=== PATIENT | female | born 1955 | race Caucasian/White ===

== ENCOUNTER 2020-01-18 19:37 | Inpatient (IN) | payer MEDICAID ==
[~2020-01-18] VITALS: Ht 175.3 cm; Wt 103.4 kg
[2020-01-18] MEDS ORDERED: methylPREDNISolone SOD SUCC 125 MG/2 ML ONE (20:13)
[2020-01-18] MEDS ORDERED: ALBUTEROL/IPRATROPIUM 2.5MG/0.5MG, 3 ML ONE (20:13)
--- NOTE | 2020-01-18 20:23 | NUR ---
PT MEDICATED PER ORDERS. LAB AND CXR AT BS.
[2020-01-18] MEDS ORDERED: SODIUM CHLORIDE FLUSH 10ML SYR IVF ONE (20:30)
[2020-01-18] MEDS ORDERED: methylPREDNISolone SOD SUCC 125 MG/2 ML IVPush ONE (20:30)
[2020-01-18] MEDS ORDERED: ALBUTEROL/IPRATROPIUM 2.5MG/0.5MG, 3 ML NPPB ONE (20:30)
--- NOTE | 2020-01-18 20:40 | NUR ---
PT STATES SHE FEELS A LITTLE BETTER AFTER BREATHING TX. STATES, "AT LEAST I'M NOT COUGHING ANYMORE."
[2020-01-18 20:54] LABS: ALANINE AMINOTRANSFERASE 15 U/L (12-78); ALBUMIN 2.1 g/dL (3.4-5.0); ANION GAP 8 mmol/L (5-15); CALCIUM 8.8 mg/dL (8.5-10.1); CHLORIDE 107 mmol/L (98-107); CREATININE 0.68 mg/dL (0.55-1.02)
[2020-01-18 20:56] LABS: BASOPHILS % (AUTO) 0 % (0-1); EOSINOPHILS % (AUTO) 6 % (1-7); LYMPHOCYTES % (AUTO) 15 % (22-44); MEAN CORPUSCULAR HGB CONC 32.8 g/dL (32.4-35.8); MEAN PLATELET VOLUME 7.5 fL (7.4-10.4); MONOCYTES % (AUTO) 7 % (2-9); NEUTROPHILS % (AUTO) 72 % (42-75); PLATELET COUNT 477 x10^3/uL (130-400); RED BLOOD COUNT 3.61 x10^6/uL (3.82-5.3); RED CELL DISTRIBUTION WIDTH 14.4 % (9.6-15.2)
[2020-01-18 20:57] LABS: MD NO
[2020-01-18 20:58] LABS: ALKALINE PHOSPHATASE 130 U/L (45-117); BILIRUBIN,TOTAL 0.2 mg/dL (0.2-1.0); TOTAL PROTEIN 6.8 g/dL (6.4-8.2); TROPONIN I < 0.015 ng/mL (0.000-0.045)
--- NOTE | 2020-01-18 21:08 | NUR ---
ERP WAS AT BS FOR RECHECK.
--- NOTE | 2020-01-18 21:42 | NUR ---
PT'S VALERIA CALLED. UPDATED HIM ON POC AND PLAN FOR ADMISSION.
--- NOTE | 2020-01-18 21:58 | NUR ---
PT RETURNED FROM CT.
[2020-01-18] MEDS ORDERED: SODIUM CHLORIDE 0.9% 1,000 ML IV ONE (22:00)
[2020-01-18] MEDS ORDERED: SODIUM CHLORIDE FLUSH 10ML SYR IVF PRN (22:00)
[2020-01-18 22:09] LABS: C-REACTIVE PROTEIN, QUANT 18.1 mg/dL (0.02-0.49)
[2020-01-18] MEDS ORDERED: OMNIPAQUE 350 MG/ML, 100ML BOTTLE ONE (22:09)
[2020-01-18 22:18] LABS: D-DIMER (DIC) 1.81 ug/mlFEU (0.00-0.52)
--- NOTE | 2020-01-18 22:21 | NUR ---
RECEIVED REPORT FROM IDANIA FRASER. ASSUMING CARE AT THIS TIME.
[2020-01-18 22:22] LABS: PROTIME 11.4 Seconds (9.6-11.5)
--- NOTE | 2020-01-18 23:04 | NUR ---
REPORT GIVEN TO ALON FRASER. RTG RM [id number]
[2020-01-19 00:17] VITALS: BP 130/87
[2020-01-19] MEDS ORDERED: LOSA25TA12 PO (01:03)
[2020-01-19] MEDS ORDERED: CELE200C PO (01:03)
[2020-01-19] MEDS ORDERED: FLUT1DIS IH (01:03)
[2020-01-19] MEDS ORDERED: ALBU18HF INH (01:03)
[2020-01-19] MEDS ORDERED: GABA-826 PO (01:03)
[2020-01-19] MEDS ORDERED: PHARMACY MAY ADJ FOR RENAL FX MC PRN (01:30)
[2020-01-19] MEDS ORDERED: ACETAMINOPHEN 325 MG TABLET PO PRN (01:30)
[2020-01-19] MEDS ORDERED: ENOXAPARIN 60 MG/0.6 ML SQ SCH (01:30)
[2020-01-19] MEDS ORDERED: DOCUSATE 100 MG CAPSULE PO PRN (01:30)
[2020-01-19] MEDS ORDERED: LIDODERM 5% PATCH TD PRN (01:30)
[2020-01-19] MEDS ORDERED: GUAIFENESIN/DM 200-20MG, 10ML UDC PO PRN (01:30)
[2020-01-19] MEDS ORDERED: ONDANSETRON ODT 4 MG PO PRN (01:30)
[2020-01-19] MEDS ORDERED: GABAPENTIN 100 MG CAPSULE PO PRN (01:30)
[2020-01-19] MEDS ORDERED: MELATONIN 5 MG TABLET PO PRN (01:30)
[2020-01-19 02:22] VITALS: BP 115/80
[2020-01-19 06:09] LABS: BASOPHILS % (AUTO) 0 % (0-1); EOSINOPHILS % (AUTO) 0 % (1-7); HCT (SEDRATE) 27.2 % (34.6-47.8); LYMPHOCYTES % (AUTO) 7 % (22-44); MEAN CORPUSCULAR HEMOGLOBIN 28.8 pg (27.0-34.8); MEAN CORPUSCULAR HGB CONC 33.5 g/dL (32.4-35.8); MEAN PLATELET VOLUME 7.5 fL (7.4-10.4); MONOCYTES % (AUTO) 2 % (2-9); NEUTROPHILS % (AUTO) 91 % (42-75); PLATELET COUNT 447 x10^3/uL (130-400); RED BLOOD COUNT 3.22 x10^6/uL (3.82-5.3); RED CELL DISTRIBUTION WIDTH 14.6 % (9.6-15.2)
[2020-01-19 06:24] LABS: CHLORIDE 110 mmol/L (98-107)
[2020-01-19 06:30] LABS: ANION GAP 6 mmol/L (5-15); CALCIUM 8.8 mg/dL (8.5-10.1); CREATININE 0.88 mg/dL (0.55-1.02)
[2020-01-19] MEDS: ALBUTEROL HFA 90 MCG/SPRAY INH SCH ×4 (07:00→20:45)
[2020-01-19 07:03] VITALS: BP 110/74
[2020-01-19] MEDS: ENOXAPARIN 100 MG/ML SQ SCH ×2 (07:30→20:49)
[2020-01-19] MEDS: ZINC SULFATE 220 MG CAPSULE PO SCH (07:56)
[2020-01-19] MEDS: ASCORBIC ACID 500 MG TABLET PO SCH ×2 (07:56→20:47)
[2020-01-19 07:57] LABS: MD SCAN
[2020-01-19] MEDS: DEXAMETHASONE 4 MG/ML, 1ML IVPush SCH (07:57)
[2020-01-19] MEDS: LOSARTAN 100 MG TAB PO SCH (07:57)
[2020-01-19] MEDS ORDERED: CHOLECALCIFEROL (VITAMIN D3) 5000 IU CAP PO SCH (09:00)
[2020-01-19] MEDS: INSULIN LISPRO 100 UNITS/ML, PEN SQ-INSULIN SCH ×4 (10:06→20:48)
[2020-01-19] MEDS: CHOLECALCIFEROL 5,000u TAB PO SCH (12:05)
[2020-01-19 12:08] VITALS: BP 109/69
[2020-01-19 12:29] LABS: RAPID INFLUENZA A Negative (Negative); RAPID INFLUENZA B Negative (Negative)
[2020-01-19] MEDS: OXYcodone IR 5MG TABLET PO PRN (17:30)
[2020-01-19] MEDS: PIPERACILLIN/TAZO/PMX 3.375GM 50 ML IV SCH ×2 (17:31→23:12)
[2020-01-19 19:46] VITALS: BP 113/69
[2020-01-19] MEDS: LINEZOLID 600 MG TABLET PO SCH (20:47)
[2020-01-20 01:32] VITALS: BP 114/77
[2020-01-20] MEDS: PIPERACILLIN/TAZO/PMX 3.375GM 50 ML IV SCH ×2 (05:14→12:41)
[2020-01-20 06:23] LABS: BASOPHILS % (AUTO) 0 % (0-1); EOSINOPHILS % (AUTO) 0 % (1-7); LYMPHOCYTES % (AUTO) 8 % (22-44); MEAN CORPUSCULAR HEMOGLOBIN 28.2 pg (27.0-34.8); MEAN CORPUSCULAR HGB CONC 33.2 g/dL (32.4-35.8); MEAN PLATELET VOLUME 7.6 fL (7.4-10.4); MONOCYTES % (AUTO) 5 % (2-9); NEUTROPHILS % (AUTO) 87 % (42-75); PLATELET COUNT 459 x10^3/uL (130-400); RED BLOOD COUNT 3.09 x10^6/uL (3.82-5.3); RED CELL DISTRIBUTION WIDTH 14.3 % (9.6-15.2)
[2020-01-20 06:29] LABS: MD NO
[2020-01-20 06:39] LABS: ANION GAP 5 mmol/L (5-15); CALCIUM 8.5 mg/dL (8.5-10.1); CHLORIDE 109 mmol/L (98-107)
[2020-01-20 06:42] LABS: CREATININE 0.62 mg/dL (0.55-1.02)
[2020-01-20 06:52] VITALS: BP 121/82
[2020-01-20] MEDS: INSULIN LISPRO 100 UNITS/ML, PEN SQ-INSULIN SCH ×4 (07:00→20:21)
[2020-01-20] MEDS: ENOXAPARIN 100 MG/ML SQ SCH ×2 (08:00→20:21)
[2020-01-20] MEDS: ALBUTEROL HFA 90 MCG/SPRAY INH SCH ×4 (08:57→20:18)
[2020-01-20] MEDS: DEXAMETHASONE 4 MG/ML, 1ML IVPush SCH (08:59)
[2020-01-20] MEDS: LINEZOLID 600 MG TABLET PO SCH (09:00)
[2020-01-20] MEDS: ASCORBIC ACID 500 MG TABLET PO SCH ×2 (09:01→20:18)
[2020-01-20] MEDS: LOSARTAN 100 MG TAB PO SCH (09:02)
[2020-01-20] MEDS: ZINC SULFATE 220 MG CAPSULE PO SCH (09:02)
[2020-01-20] MEDS: CHOLECALCIFEROL 5,000u TAB PO SCH (09:02)
[2020-01-20 12:05] VITALS: BP 112/76
[2020-01-20 19:43] VITALS: BP 118/79
[2020-01-21 01:38] VITALS: BP 125/85
[2020-01-21] MEDS: OXYcodone IR 5MG TABLET PO PRN (06:08)
[2020-01-21 06:21] VITALS: BP 123/80
[2020-01-21] MEDS: ENOXAPARIN 100 MG/ML SQ SCH ×2 (08:00→20:00)
[2020-01-21] MEDS: INSULIN LISPRO 100 UNITS/ML, PEN SQ-INSULIN SCH ×4 (08:27→21:06)
[2020-01-21] MEDS: DEXAMETHASONE 4 MG/ML, 1ML IVPush SCH (09:00)
[2020-01-21] MEDS: ALBUTEROL HFA 90 MCG/SPRAY INH SCH ×4 (09:21→21:05)
[2020-01-21] MEDS: CHOLECALCIFEROL 5,000u TAB PO SCH (09:23)
[2020-01-21] MEDS: LOSARTAN 100 MG TAB PO SCH (09:23)
[2020-01-21] MEDS: ASCORBIC ACID 500 MG TABLET PO SCH ×2 (09:23→21:06)
[2020-01-21] MEDS: ZINC SULFATE 220 MG CAPSULE PO SCH (09:24)
[2020-01-21] MEDS ORDERED: OMNIPAQUE 350 MG/ML, 100ML BOTTLE ONE (11:40)
[2020-01-21 12:09] VITALS: BP 121/75
[2020-01-21 19:39] VITALS: BP 106/72
[2020-01-22 01:16] VITALS: BP 125/81
[2020-01-22] MEDS: INSULIN LISPRO 100 UNITS/ML, PEN SQ-INSULIN SCH ×3 (07:00→16:00)
[2020-01-22 07:04] VITALS: BP 119/76
[2020-01-22] MEDS ORDERED: DEXAMETHASONE 4 MG/ML, 5ML ONE (07:29)
[2020-01-22] MEDS: ALBUTEROL HFA 90 MCG/SPRAY INH SCH ×3 (07:45→15:20)
[2020-01-22] MEDS: ENOXAPARIN 100 MG/ML SQ SCH (07:46)
[2020-01-22] MEDS: DEXAMETHASONE 4 MG/ML, 1ML IVPush SCH (07:46)
[2020-01-22] MEDS: ASCORBIC ACID 500 MG TABLET PO SCH (07:48)
[2020-01-22] MEDS: LOSARTAN 100 MG TAB PO SCH (07:48)
[2020-01-22] MEDS: ZINC SULFATE 220 MG CAPSULE PO SCH (07:48)
[2020-01-22] MEDS: CHOLECALCIFEROL 5,000u TAB PO SCH (07:48)
[2020-01-22] MEDS: OXYcodone IR 5MG TABLET PO PRN (09:10)
[2020-01-22] MEDS ORDERED: DEXA4TAB66 PO (12:08)
[2020-01-22] MEDS ORDERED: GUAI12009 PO (12:08)
[2020-01-22] MEDS ORDERED: ZINC220C7 PO (12:08)
[2020-01-22] MEDS ORDERED: CHOL500045 PO (12:08)
[2020-01-22] MEDS ORDERED: ASCO500T9 PO (12:08)
[2020-01-22 13:33] VITALS: BP 115/74
== END 2020-01-22 16:49 | disposition home or self-care (01) | DRG 177 ==
LOC: ED 21:35 → 4EST 21:41 → ED 22:12
PROVIDERS: ADMIT Internal Medicine; ATTEND Internal Medicine
DX: U07.1 COVID-19 (principal); J12.89 Other viral pneumonia; J96.01 Acute respiratory failure with hypoxia; F11.20 Opioid dependence, uncomplicated; J44.0 Chronic obstructive pulmonary disease with (acute) lower respiratory infection; J44.1 Chronic obstructive pulmonary disease with (acute) exacerbation; J93.9 Pneumothorax, unspecified; D64.9 Anemia, unspecified; E87.6 Hypokalemia; I10 Essential (primary) hypertension; K80.20 Calculus of gallbladder without cholecystitis without obstruction; N20.0 Calculus of kidney; Z80.0 Family history of malignant neoplasm of digestive organs; Z82.49 Family history of ischemic heart disease and other diseases of the circulatory system; Z85.41 Personal history of malignant neoplasm of cervix uteri; Z87.442 Personal history of urinary calculi; Z87.891 Personal history of nicotine dependence; T38.0X5A Adverse effect of glucocorticoids and synthetic analogues, initial encounter; Z98.51 Tubal ligation status; Z66 Do not resuscitate
CPT/HCPCS: 36415; 36600; 71045; 71275; 74177; 80048; 80053; 82728; 82803; 82962; 83605; 83615; 83735; 84484; 85025; 85049; 85379; 85384; 85610; 85651; 85730; 86140; 87040; 87400; 93005; 93306; 96374; 99291; G0378; J1100; J1650; J2543; Q9967; J1815; J2930; J7030

== ENCOUNTER 2020-03-29 11:17 | Emergency (ER) | payer MEDICAID ==
[~2020-03-29] VITALS: Ht 175.3 cm; Wt 97.1 kg
[~2020-03-29 11:17] MED LIST: ALBU18HF INH; ASCO500T9 PO; CELE200C PO; CHOL500045 PO; DEXA4TAB66 PO; FLUT1DIS IH; GABA-826 PO; GUAI12009 PO; LOSA25TA12 PO; ZINC220C7 PO
--- NOTE | 2020-03-29 12:08 | NUR ---
Pt arrives with c/o epistaxis in both nares. Blood in mouth. Pt states multiple episodes of epistaxis since recovering from Covid in Dec/Jan. Pt has seen ENT in [facility].
[2020-03-29] MEDS ORDERED: TRANEXAMIC ACID 100 MG/ML, 10ML TP ONE (12:30)
[2020-03-29 12:39] LABS: BASOPHILS % (AUTO) 1 % (0-1); EOSINOPHILS % (AUTO) 3 % (1-7); LYMPHOCYTES % (AUTO) 18 % (22-44); MEAN CORPUSCULAR HEMOGLOBIN 28.3 pg (27.0-34.8); MEAN CORPUSCULAR HGB CONC 32.3 g/dL (32.4-35.8); MONOCYTES % (AUTO) 7 % (2-9); NEUTROPHILS % (AUTO) 71 % (42-75); PLATELET COUNT 273 x10^3/uL (130-400); RED BLOOD COUNT 4.14 x10^6/uL (3.82-5.3)
[2020-03-29 12:40] LABS: MD NO
--- NOTE | 2020-03-29 12:41 | NUR ---
Pt in NAD, updated on POC.
[2020-03-29 12:49] LABS: ALBUMIN 3.8 g/dL (3.4-5.0); ANION GAP 7 mmol/L (5-15); CHLORIDE 108 mmol/L (98-107)
[2020-03-29 12:50] LABS: CREATININE 1.06 mg/dL (0.55-1.02)
[2020-03-29] MEDS ORDERED: TRANEXAMIC ACID 100 MG/ML, 10ML ONE (12:50)
--- NOTE | 2020-03-29 12:58 | NUR ---
ERP at bedside with med student for wilian carrasco, ROBIN updated.
[2020-03-29 13:42] VITALS: BP 121/71
== END 2020-03-29 13:43 | disposition home or self-care (01) ==
LOC: ED 13:30
DX: R04.0 Epistaxis (principal)
CPT/HCPCS: 30901; 36415; 80048; 82040; 85025; 99284

== ENCOUNTER 2020-04-01 09:38 | Emergency (ER) | payer MEDICAID ==
[~2020-04-01] VITALS: Ht 175.3 cm; Wt 97.2 kg
--- NOTE | 2020-04-01 10:15 | NUR ---
RHINO ROCKET REMOVED PER MD. PT TOLERATED WELL.
[2020-04-01 10:57] VITALS: BP 126/96
--- NOTE | 2020-04-01 10:58 | NUR ---
pt in bed. no bleeding. vss.
== END 2020-04-01 11:22 | disposition home or self-care (01) ==
LOC: ED 10:05
DX: R04.0 Epistaxis (principal)
CPT/HCPCS: 99281

== ENCOUNTER 2020-08-21 23:22 | Inpatient (IN) | payer MEDICAID ==
[~2020-08-21] VITALS: Ht 175.3 cm; Wt 118.8 kg
--- NOTE | 2020-08-21 23:37 | NUR ---
pt bib REMSA for sob, chest burning and diarrhea x 4 days. pt is very weak. pt on 2 L NC at home since she had COVID in Nov. pt resting on gurney, erp at bedside
[2020-08-21 23:45] LABS: BASOPHILS % (AUTO) 1 % (0-1); EOSINOPHILS % (AUTO) 4 % (1-7); LYMPHOCYTES % (AUTO) 22 % (22-44); MEAN CORPUSCULAR HEMOGLOBIN 29.6 pg (27.0-34.8); MONOCYTES % (AUTO) 6 % (2-9); NEUTROPHILS % (AUTO) 68 % (42-75); PLATELET COUNT 225 x10^3/uL (130-400); RED BLOOD COUNT 3.77 x10^6/uL (3.82-5.3); RED CELL DISTRIBUTION WIDTH 15.4 % (9.6-15.2)
[2020-08-21 23:59] LABS: ALANINE AMINOTRANSFERASE 23 U/L (12-78); ALBUMIN 3.3 g/dL (3.4-5.0); ANION GAP 5 mmol/L (5-15); CALCIUM 8.6 mg/dL (8.5-10.1); CHLORIDE 109 mmol/L (98-107)
[2020-08-22] VITALS (12 sets, daily range): BP systolic 99–135; BP diastolic 59–81
--- NOTE | 2020-08-22 | NUR ---
pt resting on gurney, denies needs at this time.
[2020-08-22 00:04] LABS: ALKALINE PHOSPHATASE 95 U/L (45-117); BILIRUBIN,TOTAL 0.3 mg/dL (0.2-1.0); TOTAL PROTEIN 6.9 g/dL (6.4-8.2); TROPONIN I < 0.015 ng/mL (0.000-0.045)
--- NOTE | 2020-08-22 01:00 | NUR ---
pt on bedpan, ua sample collected and sent to lab
[2020-08-22 01:32] LABS: MICROSCOPIC AUTO
--- NOTE | 2020-08-22 02:00 | NUR ---
pt resting on [place]ur[place]ton, denies needs at this time
[2020-08-22] MEDS ORDERED: CEFTRIAXONE 1,000 MG in DEXTROSE 5% 50 ML IVPB ONE (02:30)
[2020-08-22] MEDS ORDERED: CYCL10TA2 PO (02:50)
[2020-08-22] MEDS ORDERED: TIOT18CA INH (02:50)
[2020-08-22] MEDS ORDERED: PROP80TA PO (02:50)
[2020-08-22] MEDS ORDERED: MELO7.5T31 PO (02:50)
[2020-08-22] MEDS ORDERED: SERT-331 PO (02:50)
[2020-08-22] MEDS ORDERED: OMEP40CA8 PO (02:50)
[2020-08-22] MEDS ORDERED: TERB250T14 PO (02:50)
[2020-08-22] MEDS ORDERED: LOSA1TAB25 PO (02:50)
[2020-08-22] MEDS ORDERED: LABETALOL 5MG/ML, 20ML IVPush PRN (04:00)
[2020-08-22] MEDS ORDERED: morphine SULFATE 10 MG/ML, 1ML IVPush PRN ×2 (04:00→10:00)
[2020-08-22] MEDS: POLYETHYLENE GLYCOL 17 GM PACKET PO SCH ×4 (04:00→20:20)
[2020-08-22] MEDS ORDERED: MELATONIN 5 MG TABLET PO PRN (04:00)
[2020-08-22] MEDS ORDERED: LACTATED RINGERS 1,000 ML IV SCH (04:00)
[2020-08-22] MEDS ORDERED: ONDANSETRON 2MG/ML, 2ML IVPush PRN ×2 (04:00→17:00)
--- NOTE | 2020-08-22 04:28 | NUR ---
Pt to be admitted to medical, room 376. Report called to BRIA Mendieta.
[2020-08-22] MEDS: KETOROLAC 30 MG/1 ML IV SCH ×5 (05:07→20:20)
[2020-08-22] MEDS ORDERED: OMEPRAZOLE 20 MG CAPSULE.DR PO SCH (09:00)
[2020-08-22] MEDS ORDERED: FAMOTIDINE 20 MG/2 ML IVPush SCH (09:00)
[2020-08-22] MEDS ORDERED: TEMPLATE NON-FORMULARY MED. (Fluticasone/Salmeterol** (Advair 100-50 Diskus**) 1 PUFF) HOMEINH SCH (09:00)
[2020-08-22] MEDS ORDERED: ALBUTEROL HFA 90 MCG/SPRAY INH PRN (09:00)
[2020-08-22] MEDS ORDERED: TIOTROPIUM BROMIDE 18 MCG/INH INH SCH (09:00)
[2020-08-22] MEDS ORDERED: ALBUTEROL SULFATE 2.5 MG/3 ML NPPB SCH ×2 (11:30→15:00)
[2020-08-22] MEDS: LACTOBACILLUS CHEW TABLET PO SCH ×3 (12:00→20:20)
[2020-08-22] MEDS: ALBUTEROL/IPRATROPIUM 2.5MG/0.5MG, 3 ML NPPB SCH ×2 (14:32→20:14)
[2020-08-22] MEDS ORDERED: MIDAZOLAM 1 MG/ML, 2ML ONE (15:41)
[2020-08-22] MEDS ORDERED: FENTANYL PF 250 MCG/5ML ONE (15:41)
[2020-08-22] MEDS ORDERED: OMNIPAQUE 350 MG/ML, 50 ML BOTTLE ONE (16:12)
[2020-08-22] MEDS ORDERED: FENTANYL PF 100 MCG/2ML IV PRN (17:00)
[2020-08-22] MEDS ORDERED: hydrALAzine 20 MG/ML, 1ML IV PRN (17:00)
[2020-08-22] MEDS ORDERED: OXYcodone 5 MG/5 ML ORAL.SOL UDC PO PRN (17:00)
[2020-08-22] MEDS ORDERED: PROMETHAZINE 12.5 MG SUPP PR PRN (17:00)
[2020-08-22] MEDS ORDERED: HYDROmorphone 1 MG/ML, 1ML INJ IVPush PRN (17:00)
[2020-08-22] MEDS ORDERED: PROMETHAZINE 25 MG/ML, 1ML IVPush PRN (17:00)
[2020-08-22] MEDS ORDERED: MIDAZOLAM 1 MG/ML, 2ML IV PRN (17:00)
[2020-08-22] MEDS ORDERED: MEPERIDINE/PF 25MG/0.5ML IVPush PRN (17:00)
[2020-08-22] MEDS ORDERED: ACETAMINOPHEN 325 MG TABLET PO PRN (17:00)
[2020-08-22] MEDS ORDERED: EPHEDRINE 50 MG/ML, 1ML IVPush PRN (17:00)
[2020-08-22] MEDS ORDERED: LORazepam 2 MG/ML, 1ML IVPush PRN (17:00)
[2020-08-22] MEDS ORDERED: DIPHENHYDRAMINE 50 MG/ML, 1ML IVPush PRN ×2 (17:00)
[2020-08-22] MEDS ORDERED: LABETALOL 5MG/ML, 20ML IV PRN (17:00)
[2020-08-22] MEDS ORDERED: ALBUTEROL SULFATE 2.5 MG/3 ML NPPB PRN (17:00)
[2020-08-22] MEDS ORDERED: DIAZEPAM 5 MG/ML, 2ML IVPush PRN (17:00)
[2020-08-22] MEDS: PROPRANOLOL 40 MG TABLET PO SCH (19:15)
[2020-08-22] MEDS: SERTRALINE 50MG TABLET PO SCH (19:31)
[2020-08-22] MEDS: OMEPRAZOLE 20 MG CAPSULE.DR PO SCH (19:31)
[2020-08-22] MEDS ORDERED: PROPRANOLOL 20 MG TABLET ONE (19:48)
[2020-08-22] MEDS: BUDESONIDE 0.5 MG/2 ML INHA NPPB SCH (20:14)
[2020-08-23] MEDS: KETOROLAC 30 MG/1 ML IV SCH ×6 (00:12→19:20)
[2020-08-23 00:58] VITALS: BP 126/78
[2020-08-23] MEDS: ALBUTEROL/IPRATROPIUM 2.5MG/0.5MG, 3 ML NPPB SCH ×4 (02:20→21:10)
[2020-08-23 05:50] LABS: BASOPHILS % (AUTO) 0 % (0-1); EOSINOPHILS % (AUTO) 0 % (1-7); LYMPHOCYTES % (AUTO) 15 % (22-44); MEAN CORPUSCULAR HEMOGLOBIN 30.4 pg (27.0-34.8); MEAN CORPUSCULAR HGB CONC 33.6 g/dL (32.4-35.8); MONOCYTES % (AUTO) 2 % (2-9); NEUTROPHILS % (AUTO) 83 % (42-75); PLATELET COUNT 196 x10^3/uL (130-400); RED BLOOD COUNT 3.26 x10^6/uL (3.82-5.3); RED CELL DISTRIBUTION WIDTH 15.2 % (9.6-15.2)
[2020-08-23 05:54] LABS: ANION GAP 5 mmol/L (5-15); CALCIUM 8.7 mg/dL (8.5-10.1); CHLORIDE 111 mmol/L (98-107)
[2020-08-23 05:55] LABS: CREATININE 1.23 mg/dL (0.55-1.02)
[2020-08-23] MEDS: OMEPRAZOLE 20 MG CAPSULE.DR PO SCH (05:59)
[2020-08-23 06:29] LABS: CLOSTRIDIUM DIFFICILE ANTIGEN NEGATIVE; CLOSTRIDIUM DIFFICILE TOXIN NEGATIVE (Negative)
[2020-08-23 08:00] VITALS: BP 100/63
[2020-08-23] MEDS: LACTOBACILLUS CHEW TABLET PO SCH ×3 (08:02→20:12)
[2020-08-23] MEDS: ACETAMINOPHEN 325 MG TABLET PO PRN ×2 (08:02→15:55)
[2020-08-23] MEDS: POLYETHYLENE GLYCOL 17 GM PACKET PO SCH ×4 (08:04→20:12)
[2020-08-23] MEDS: LACTATED RINGERS 1,000 ML IV SCH (08:04)
[2020-08-23] MEDS: BUDESONIDE 0.5 MG/2 ML INHA NPPB SCH ×2 (09:15→21:10)
[2020-08-23 13:28] VITALS: BP 98/59
[2020-08-23] MEDS: SERTRALINE 50MG TABLET PO SCH (17:13)
[2020-08-23 18:58] VITALS: BP 103/67
[2020-08-23] MEDS: PROPRANOLOL 40 MG TABLET PO SCH (20:19)
[2020-08-24] MEDS: KETOROLAC 30 MG/1 ML IV SCH ×2 (00:01→04:04)
[2020-08-24 01:17] VITALS: BP 115/77
[2020-08-24] MEDS: LACTATED RINGERS 1,000 ML IV SCH (01:40)
[2020-08-24] MEDS: ALBUTEROL/IPRATROPIUM 2.5MG/0.5MG, 3 ML NPPB SCH ×2 (03:00→10:40)
[2020-08-24] MEDS: OMEPRAZOLE 20 MG CAPSULE.DR PO SCH (05:41)
[2020-08-24] MEDS: ACETAMINOPHEN 325 MG TABLET PO PRN (05:41)
[2020-08-24 05:56] LABS: BASOPHILS % (AUTO) 1 % (0-1); EOSINOPHILS % (AUTO) 3 % (1-7); LYMPHOCYTES % (AUTO) 34 % (22-44); MEAN CORPUSCULAR HGB CONC 33.4 g/dL (32.4-35.8); MEAN PLATELET VOLUME 7.9 fL (7.4-10.4); MONOCYTES % (AUTO) 7 % (2-9); NEUTROPHILS % (AUTO) 56 % (42-75); PLATELET COUNT 176 x10^3/uL (130-400); RED BLOOD COUNT 3.12 x10^6/uL (3.82-5.3); RED CELL DISTRIBUTION WIDTH 15.4 % (9.6-15.2)
[2020-08-24 06:07] LABS: ANION GAP 4 mmol/L (5-15); CALCIUM 8.5 mg/dL (8.5-10.1); CHLORIDE 110 mmol/L (98-107)
[2020-08-24 06:08] LABS: % IRON SATURATION 12 % (20-55); CREATININE 1.23 mg/dL (0.55-1.02); IRON LEVEL 41 mcg/dL (50-170); TOTAL IRON BINDING CAPACITY 340 mcg/dL (250-450)
[2020-08-24 06:56] VITALS: BP 144/79
[2020-08-24] MEDS ORDERED: KETOROLAC 10MG TABLET PO PRN (08:00)
[2020-08-24] MEDS ORDERED: POLYETHYLENE GLYCOL 17 GM PACKET PO PRN (08:00)
[2020-08-24] MEDS: LACTOBACILLUS CHEW TABLET PO SCH (08:20)
[2020-08-24] MEDS ORDERED: DIPHENOXYLATE/ATROPINE TABLET PO PRN (09:30)
[2020-08-24] MEDS ORDERED: DIPH1TAB6 PO (10:36)
[2020-08-24] MEDS ORDERED: ACID1TAB7 PO (10:36)
[2020-08-24] MEDS ORDERED: LOPE-114 PO (10:38)
[2020-08-24] MEDS: BUDESONIDE 0.5 MG/2 ML INHA NPPB SCH (10:40)
[2020-08-24 13:07] VITALS: BP 118/80
[2020-08-26] MEDS ORDERED: MELOXICAM 15 MG TABLET PO SCH (09:00)
== END 2020-08-24 15:00 | disposition home or self-care (01) | DRG 661 ==
LOC: ED 23:45 → EDIP 08-22 02:36 → 3N 08-22 04:15 → DCLOUNGE 08-24 14:41
PROVIDERS: ADMIT Student in an Organized Health Care Education/Training Program; ATTEND Internal Medicine
PROC: 0TF78ZZ Fragmentation in Left Ureter, Via Natural or Artificial Opening Endoscopic (ICD-10-PCS; 2020-08-22)
PROC: BT1F1ZZ Fluoroscopy of Left Kidney, Ureter and Bladder using Low Osmolar Contrast (ICD-10-PCS; 2020-08-22)
PROC: 0T778DZ Dilation of Left Ureter with Intraluminal Device, Via Natural or Artificial Opening Endoscopic (ICD-10-PCS; principal; 2020-08-22 14:15)
DX: N13.2 Hydronephrosis with renal and ureteral calculous obstruction (principal); E66.9 Obesity, unspecified; D64.9 Anemia, unspecified; I10 Essential (primary) hypertension; K21.9 Gastro-esophageal reflux disease without esophagitis; R19.7 Diarrhea, unspecified; Z20.822 Contact with and (suspected) exposure to COVID-19; Z80.0 Family history of malignant neoplasm of digestive organs; Z85.41 Personal history of malignant neoplasm of cervix uteri; Z86.16 Personal history of COVID-19; Z87.891 Personal history of nicotine dependence; Z68.38 Body mass index [BMI] 38.0-38.9, adult
CPT/HCPCS: 36415; 74420; 96365; 99285; J7626; 27093; 71045; 74177; 80048; 80053; 81001; 82360; 83540; 83550; 83690; 83880; 84484; 85025; 87086; 87324; 87635; 88300; 93005; 94640; G0378; J0696; J1885; J2250; J3010; Q9967; C1769; C2617; J7120

== ENCOUNTER 2020-10-19 14:43 | Emergency (ER) | payer MEDICAID ==
[~2020-10-19] VITALS: Ht 175.3 cm; Wt 113.5 kg
[~2020-10-19 14:43] MED LIST changes: +ACID1TAB7 PO; +CYCL10TA2 PO; +DIPH1TAB6 PO; +LOPE-114 PO; +LOSA1TAB25 PO; +MELO7.5T31 PO; +OMEP40CA8 PO; +PROP80TA PO; +SERT-331 PO; +TERB250T14 PO; +TIOT18CA INH
[2020-10-19 15:44] LABS: BASOPHILS % (AUTO) 0 % (0-1); EOSINOPHILS % (AUTO) 0 % (1-7); LYMPHOCYTES % (AUTO) 8 % (22-44); MEAN CORPUSCULAR HEMOGLOBIN 28.7 pg (27.0-34.8); MEAN CORPUSCULAR HGB CONC 32.7 g/dL (32.4-35.8); MEAN PLATELET VOLUME 8.3 fL (7.4-10.4); MONOCYTES % (AUTO) 7 % (2-9); NEUTROPHILS % (AUTO) 85 % (42-75); PLATELET COUNT 267 x10^3/uL (130-400); RED BLOOD COUNT 3.94 x10^6/uL (3.82-5.3); RED CELL DISTRIBUTION WIDTH 14.3 % (9.6-15.2)
[2020-10-19 15:54] LABS: ALANINE AMINOTRANSFERASE 20 U/L (12-78); ALBUMIN 3.3 g/dL (3.4-5.0); ANION GAP 5 mmol/L (5-15); CALCIUM 8.9 mg/dL (8.5-10.1); CHLORIDE 108 mmol/L (98-107); CREATININE 0.98 mg/dL (0.55-1.02)
[2020-10-19 15:57] LABS: ALKALINE PHOSPHATASE 103 U/L (45-117); BILIRUBIN,TOTAL 0.3 mg/dL (0.2-1.0); TOTAL PROTEIN 7.3 g/dL (6.4-8.2)
[2020-10-19 16:35] LABS: MICROSCOPIC INDICATED
[2020-10-19] MEDS ORDERED: KETOROLAC 30 MG/1 ML ONE (18:22)
[2020-10-19] MEDS ORDERED: ONDANSETRON 2MG/ML, 2ML ONE (18:22)
[2020-10-19] MEDS ORDERED: MORPHINE SULFATE 4 MG/ML, 1ML ONE (18:22)
[2020-10-19] MEDS ORDERED: MORPHINE SULFATE 4 MG/ML, 1ML IVPush PRN (18:30)
[2020-10-19] MEDS ORDERED: KETOROLAC 30 MG/1 ML IVPush ONE (18:30)
[2020-10-19] MEDS ORDERED: ONDANSETRON 2MG/ML, 2ML IVPush ONE (18:30)
[2020-10-19] MEDS ORDERED: SODIUM CHLORIDE FLUSH 10ML SYR IVF ONE (18:30)
[2020-10-19 18:38] VITALS: BP 163/92
--- NOTE | 2020-10-19 18:55 | NUR ---
REPORT TO APRIL FRASER.
--- NOTE | 2020-10-19 19:45 | NUR ---
Patient/Caregiver given discharge instructions and they have confirmed that they understand the instructions. Patient ambulatory with steady gait. NAD, all questions answered appropriately, denies additional needs at this time. No personal belongings left in room after discharge.
== END 2020-10-19 19:47 | disposition home or self-care (01) ==
LOC: ED 19:44
DX: N13.2 Hydronephrosis with renal and ureteral calculous obstruction (principal); Z87.891 Personal history of nicotine dependence
CPT/HCPCS: 36415; 74176; 80053; 81001; 85025; 87077; 87086; 96374; 96375; 99284; J1885; J2270; J2405